=== PATIENT | female | born 2000 | race Caucasian/White ===

== ENCOUNTER 2023-01-01 20:04 | Emergency (ER) | payer MEDICAID, SELFPAY ==
[2023-01-01 20:08] VITALS: BP 133/89; PULSE 117; RESP 17; TEMP 36.7; O2SAT 98; BMI 28.8
--- NOTE | 2023-01-01 21:27 | ED_ITS ---
HPI - General Adult General: Chief complaint: General Medical Stated complaint: Drug Withdrawl Time Seen by Provider: 01/01/23 21:07 History of Present Illness: 22-year-old female presents emergency department stating that she feels like she is having withdrawal symptoms. She states she feels itchy all over her skin. She states that she used fentanyl approximately 8 hours ago. She denies suicidal ideation or homicidal ideation. She states she is not ready to go to rehabilitation although she states she does have 2 children and does wish to quit. She states that she may go get evaluated tomorrow for drug rehabilitation. She denies chest pain, dizziness or lightheaded feeling. She states she does feel nauseated but has not vomited. Associated symptoms: Reports nausea Review of Systems General: Reports: 10 or more systems reviewed and unremarkable except in HPI and below GI: Reports: nausea Psych: Reports: other (Opioid abuse); Denies: suicidal ideation or homicidal ideation Physical Exam Const: COMMON NORMALS: no acute distress, patient oriented x3 and alert HENMT: COMMON NORMALS: normocephalic, atraumatic, Normal nasal mucous membranes and turbinates present and moist oral mucous membranes HEAD & SCALP: normocephalic and atraumatic NOSE: Normal nasal mucous membranes and turbinates present Eye: COMMON NORMALS: Equal, round and reactive pupils present and EOMs intact bilaterally PUPIL: Yes Equal, round and reactive pupils present Neck/C-Spine: COMMON NORMALS: full ROM, supple and no meningeal signs Chest: COMMONS NORMALS: normal inspection of the chest and normal palpation of entire chest wall Resp: COMMON NORMALS: normal respiratory effort and clear to auscultation bilaterally AUSCULTATION: clear to auscultation bilaterally Cardio: COMMON NORMALS: regular rate, regular rhythm, S1 normal heart sound present, S2 normal heart sound present and Peripheral pulses 2+ throughout RATE: regular rate RHYTHM: regular rhythm HEART SOUNDS: S1 normal heart sound present and S2 normal heart sound present PERIPHERAL PULSES: Peripheral pulses 2+ throughout GI: COMMON NORMALS: Normal to inspection, nondistended, normoactive bowel sounds present, Soft to palpation and non-tender PALPATION: Yes Soft to palpation Extremity: COMMON NORMALS: normal to inspection, full ROM and capillary refill normal Neuro: COMMON NORMALS: patient oriented x3, moves all extremities and no sensory deficits noted SENSORIUM/ORIENTATION: Yes alert MENINGEAL SIGNS: Yes no meningeal signs Psych: COMMON NORMALS: mental status grossly normal, Normal thought process present, cooperative, normal affect, speech normal, activity/motor behavior normal, denies hallucinations, denies homicidal ideation and denies suicidal ideation SPEECH: Yes normal speech THOUGHT PROCESS: Normal thought process present Skin: COMMON NORMALS: no rashes or lesions noted GENERAL SKIN EXAM: no rashes or lesions noted Course Vital Signs: Vital signs: Vital Signs Temperature 98.1 F 01/01/23 20:08 Pulse Rate 117 H 01/01/23 20:08 Respiratory Rate 17 01/01/23 20:08 Blood Pressure 133/89 01/01/23 20:08 Pulse Oximetry 98 01/01/23 20:08 Oxygen Delivery Me thod Room Air 01/01/23 20:08 MDM - General Adult Medical Decision Making I discussed with the patient options for outpatient treatment. I did provide her with intramuscular hydroxyzine for her anxiety and feeling anxious. I did provide her with Zofran by mouth for her nausea. Differential Diagnosis 1. Substance abuse-opioids/narcotics 2. Opiate withdrawal No radiology studies performed this visit Discharge Plan Discharge Patient Disposition: Home Clinical Impression: Opioid abuse with withdrawal, Anxiety Condition: Stable Discharge Orders: Discharge ED (Routine); Ordered 01/01/23 Ordered By: Fawad Sanchez Discharge Diet: Advance as tolerated Discharge Activity: Resume usual activity Coding Level of Care Code ED [employer] Supervisor for Kyle aGyle
[2023-01-01] MEDS: ondansetron 4 MG Tablet PO (21:47)
[2023-01-01] MEDS: hyDROXYzine 25 mg Capsule 50 MG PO (21:57)
[2023-01-01 22:01] VITALS: PULSE 70; RESP 18; O2SAT 98
== END 2023-01-01 22:02 | disposition home or self-care (01) ==
PROVIDERS: Emergency Provider Internal Medicine
DX: F11.13 Opioid abuse with withdrawal (principal); F41.9 Anxiety disorder, unspecified
CPT/HCPCS: 99284; Q0162

== ENCOUNTER 2023-04-01 22:38 | Emergency (ER) | payer MEDICAID, SELFPAY ==
[2023-04-01 22:44] VITALS: BP 206/115; PULSE 142; RESP 17; TEMP 36.8; O2SAT 100; BMI 30.4
--- NOTE | 2023-04-01 22:52 | XRR_ITS ---
PROCEDURE INFORMATION: Exam: XR Chest Exam date and time: 04/01/2023 11:31 PM Age: 22 years old Clinical indication: Cough and dyspnea and tachypnea; Additional info: SOB TECHNIQUE: Imaging protocol: Radiologic exam of the chest. Views: 1 view. COMPARISON: No relevant prior studies available. FINDINGS: Lungs: Unremarkable. No consolidation. Pleural spaces: Unremarkable. No pleural effusion. No pneumothorax. Heart/Mediastinum: Unremarkable. No cardiomegaly. Bones/joints: Unremarkable. XR/XR chest 1V portable [id number] IMPRESSION: No acute findings.
--- NOTE | 2023-04-01 22:53 | ECG_ITS ---
[facility] Test Date: 2023-04-01 Pat Name: Daniela Philip Department: Room: Gender: Female Radiology Teacher: : 2000 Requested By: Imelda Sandoval Order Number: [id number] Wright MD: Jim Anthony M.D. Measurements Intervals [place] Rate: 114 P: 76 WV: 158 QRS: 89 QRSD: 91 T: 49 QT: 304 QTc: 419 Interpretive Statements SINUS TACHYCARDIA MODERATE ST DEPRESSION [0.05+ mV ST DEPRESSION] No previous ECG available for comparison Electronically Signed On 04-02-2023 7:53:25 VENDOR SPECIALIST by Jim Anthony M.D. [email or web address]
--- NOTE | 2023-04-01 22:55 | W.ED.GENADLT ---
HPI - General Adult General: Chief complaint: General Medical Stated complaint: sob chest temp Time Seen by Provider: 04/01/23 22:40 Source: patient Mode of arrival: ambulatory Limitations: no limitations History of Present Illness: 22-year-old female states she has been having some cough congestion over the last 2 weeks states that today she is been feeling extremely short of breath her heart has been racing his feeling tingly when she initially arrived her heart rate was in the 170s and she is in SVT she denies any history of SVT when patient IV started she had converted to normal sinus rhythm she has been told she is had hypertension but does not take any meds for it denies any worsening proving factors currently Associated symptoms: Reports dyspnea and palpitations; Deny chest pain, headache(s), nausea, rash or vomiting Review of Systems Const: Denies: fever(s), chills, body aches or change in appetite Eyes: Denies: blurry vision or eye discomfort ENMT: Denies: throat pain or dental pain Card: Reports: palpitations; Denies: chest pain Resp: Reports: dyspnea and non-productive cough GI: Denies: abdominal pain, nausea, vomiting or diarrhea Musc: Denies: neck pain or back pain Skin/Breast: Denies: rash Neuro: Denies: headache(s) Physical Exam Const: COMMON NORMALS: no acute distress, patient oriented x3 and healthy appearing HENMT: COMMON NORMALS: normocephalic and atraumatic HEAD & SCALP: normocephalic and atraumatic Eye: COMMON NORMALS: Equal, round and reactive pupils present and EOMs intact bilaterally PUPIL: Yes Equal, round and reactive pupils present Neck/C-Spine: COMMON NORMALS: full ROM and supple Chest: COMMONS NORMALS: normal inspection of the chest Resp: COMMON NORMALS: normal respiratory effort, No retractions, No use of accessory muscles and clear to auscultation bilaterally AUSCULTATION: clear to auscultation bilaterally Cardio: COMMON NORMALS: regular rhythm and No murmurs present (Cardio) RATE: tachycardic RHYTHM: regular rhythm Extremity: COMMON NORMALS: normal to inspection and full ROM Neuro: COMMON NORMALS: patient oriented x3, moves all extremities and no focal motor deficits Psych: COMMON NORMALS: mental status grossly normal, Normal thought process present and cooperative THOUGHT PROCESS: Normal thought process present Skin: COMMON NORMALS: no rashes or lesions noted and no wounds GENERAL SKIN EXAM: no rashes or lesions noted Course Vital Signs: Vital signs: Vital Signs Temperature 98.2 F 04/01/23 22:44 Pulse Rate 106 H 04/02/23 00:20 Respiratory Rate 16 04/02/23 00:20 Blood Pressure 128/79 04/02/23 00:20 Pulse Oximetry 99 04/02/23 00:20 Oxygen Delivery Me thod Room Air 04/01/23 22:44 MDM - General Adult Medical Decision Making Patient presents here with SVT she has since converted her heart rates now in the 80s vitals are normal her blood work x-ray EKG showed no acute findings or D-dimer is negative no signs of PE she stable for discharge we will get a cardiology follow-up she is return if worsening. Medical Records I reviewed the patient's medical records. Lab Data I reviewed the patient's lab results. 04/01/23 23:45 04/01/23 23:45 Laboratory Results WBC 14.32 10^3/uL (3.29-11.43) H 04/01/23 23:45 RBC 4.80 10^6/uL (3.85-5.65) 04/01/23 23:45 Hgb 13.50 g/dL (11.27-16.99) 04/01/23 23:45 Hct 40.7 % (36-47) 04/01/23 23:45 MCV 84.8 fl (85-98) L 04/01/23 23:45 MCH 28.1 pg (27-33) 04/01/23 23:45 MCHC 33.2 g/dL (30-55) 04/01/23 23:45 RDW 11.3 % (12.1-15.1) L 04/01/23 23:45 Plt Count 306 10^3/cmm (157-399) 04/01/23 23:45 MPV 11.1 fL (7.4-10.4) H 04/01/23 23:45 Neut % (Auto) 80.7 % 04/01/23 23:45 Lymph % (Auto) 13.3 % 04/01/23 23:45 [place] % (Auto) 4.3 % 04/01/23 23:45 Eos % (Auto) 1.2 % 04/01/23 23:45 Baso % (Auto) 0.2 % 04/01/23 23:45 Neut # (Auto) 11.57 10^3/uL (1.8-7.7) H 04/01/23 23:45 Lymph # (Auto) 1.9 10^3/uL (0.8-4.8) 04/01/23 23:45 [place] # (Auto) 0.6 10^3/uL (0.2-0.9) 04/01/23 23:45 Eos # (Auto) 0.2 10^3/uL (0.0-0.8) 04/01/23 23:45 Baso # (Auto) 0.0 10^3/uL (0.0-0.1) 04/01/23 23:45 Nucleated RBC % (auto) 0 % 04/01/23 23:45 Nucleated RBCs # 0.0 /100WBC 04/01/23 23:45 D-Dimer <= 0.27 ug/mLFEU (0-0.59) 04/01/23 23:45 Sodium 138 mmol/L (136-145) 04/01/23 23:45 Chloride 102 mmol/L (98-107) 04/01/23 23:45 Carbon Dioxide 25 mmol/L (22-29) 04/01/23 23:45 BUN 9 mg/dL (6-20) 04/01/23 23:45 Creatinine 0.6 mg/dL (0.5-0.9) 04/01/23 23:45 GFR Calculation 122.8 mL/min (90-130) 04/01/23 23:45 Calculated Osmolality 287 mOsm/kg (285-295) 04/01/23 23:45 Calcium 9.3 mg/dL (8.5-10.5) 04/01/23 23:45 Total Bilirubin 0.3 mg/dL (0.15-1.2) 04/01/23 23:45 AST 10 U/L (0-32) 04/01/23 23:45 ALT < 5 U/L (0-33) 04/01/23 23:45 Alkaline Phosphatase 95 U/L (35-105) 04/01/23 23:45 NT-Pro-B Natriuret Pep 41 pg/mL (0-125) 04/01/23 23:45 Total Protein 6.7 g/dL (6.6-8.7) 04/01/23 23:45 Albumin 4.0 g/dL (3.5-5.2) 04/01/23 23:45 Globulin 2.7 g/dL (1.3-4.6) 04/01/23 23:45 HCG, Qual Negative (Negative) 04/01/23 23:45 XR interpretation done by ED provider, pending radiology final review ED provider radiology interpretation(s): cxr no acute abnormality EKG Data EKG 1: I personally reviewed and interpreted this EKG as follows: EKG interpretation date: 04/01/23 EKG interpretation time: 22:55 Interpretation: sinus tach hr [address] or t wave abnormalities qrs 91 qtc 372 Discharge Plan Discharge Patient Disposition: Home Clinical Impression: SVT (supraventricular tachycardia) Condition: Stable Discharge Orders: Discharge ED (Routine); Ordered 04/02/23 Ordered By: Imelda Sandoval Referrals: Stone Piper MD [Physician] - 1-3 days Discharge Diet: Advance as tolerated Discharge Activity: Resume usual activity Patient Instructions: Supraventricular Tachycardia (ED) Coding Level of Care Code ED Screwmaker Automatic for Chg Irwin
[2023-04-01 23:18] VITALS: BP 111/87; PULSE 120; RESP 17; O2SAT 98
[2023-04-01] MEDS: LORazepam 2 mg/mL INJ 10 mL MDV 1 MG IVP (23:44)
[2023-04-01] MEDS: sodium chloride 0.9% 1,000 ML 999 ML IV (23:44)
[2023-04-01 23:51] VITALS: BP 112/80; PULSE 98; RESP 16; O2SAT 95
[2023-04-01 23:52] LABS: Basophils % 0.2 %; Eosinophils # 0.2 10^3/uL (0.0-0.8); Eosinophils % 1.2 %; Hematocrit 40.7 % (36-47); Lymphocytes # 1.9 10^3/uL (0.8-4.8); Lymphocytes % 13.3 %; Mean Corpuscular HGB Conc 33.2 g/dL (30-55); Mean Corpuscular Hemoglobin 28.1 pg (27-33); Mean Corpuscular Volume 84.8 fl (85-98); Mean Platelet Volume 11.1 fL (7.4-10.4); Monocytes # 0.6 10^3/uL (0.2-0.9); Monocytes % 4.3 %; Neutrophils # 11.57 10^3/uL (1.8-7.7); Neutrophils % 80.7 %; Nucleated Red Blood Cells % 0 %; Platelet Count 306 10^3/cmm (157-399); Red Cell Distribution Width 11.3 % (12.1-15.1); White Blood Count 14.32 10^3/uL (3.29-11.43)
[2023-04-02] VITALS: BP 132/86; PULSE 108; RESP 16; O2SAT 99
[2023-04-02 00:19] LABS: D Dimer <= 0.27 ug/mLFEU (0-0.59)
[2023-04-02 00:20] VITALS: BP 128/79; PULSE 106; RESP 16; O2SAT 99
[2023-04-02 00:34] LABS: HCG, Serum Qual Negative (Negative)
[2023-04-02 00:36] LABS: Alanine Aminotransferase < 5 U/L (0-33); Alkaline Phosphatase 95 U/L (35-105); Aspartate Amino Transferase 10 U/L (0-32); Blood Urea Nitrogen 9 mg/dL (6-20); Calcium 9.3 mg/dL (8.5-10.5); Carbon Dioxide 25 mmol/L (22-29); Chloride 102 mmol/L (98-107); Globulin 2.7 g/dL (1.3-4.6); Glomerular Filtration Rate 122.8 mL/min (90-130); Glucose 137 mg/dL (65-115); NT Pro B Type Natriuretic Pept 41 pg/mL (0-125); Osmolality Calculated 287 mOsm/kg (285-295); Sodium 138 mmol/L (136-145); Total Bilirubin 0.3 mg/dL (0.15-1.2); Total Protein 6.7 g/dL (6.6-8.7)
[2023-04-02 00:42] LABS: Anion Gap 14.7 (5-19); Potassium 3.7 mmol/L (3.5-5.1)
[2023-04-02 00:45] VITALS: BP 123/86; PULSE 84; RESP 16; O2SAT 100
--- NOTE | 2023-04-09 08:03 | DCPLANNER ---
Message sent to Cardiology for follow up appointment of SVT's
== END 2023-04-02 00:54 | disposition home or self-care (01) ==
PROVIDERS: Emergency Provider Emergency Medicine
DX: I47.10 Supraventricular tachycardia, unspecified (principal)
CPT/HCPCS: 71045; 80053; 83880; 84703; 85025; 85378; 93005; 96361; 96374; 99285; J2060; J7030

== ENCOUNTER → 2023-07-15 11:47 | Outpatient (BNVA) | payer MEDICAID, SELFPAY | PROVIDERS: Visit Provider Nurse Practitioner Family | DX: R39.9 Unspecified symptoms and signs involving the genitourinary system (principal) | CPT/HCPCS: 81000 ==